=== PATIENT | female | born 1960 | race Caucasian/White ===

== ENCOUNTER 2023-04-01 15:11 | Outpatient (CLI) | payer BC, SELFPAY ==
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
== END 2023-04-01 15:12 ==
PROVIDERS: PCP Internal Medicine; Visit Provider Nurse Practitioner
DX: M25.561 Pain in right knee (principal); M25.461 Effusion, right knee
CPT/HCPCS: 73564

== ENCOUNTER 2023-08-03 14:26 | Outpatient (CLI) | payer BC, SELFPAY ==
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
== END 2023-08-03 14:27 ==
LOC: MICIMG 14:27
PROVIDERS: PCP Clinical Nurse Specialist; Visit Provider Clinical Nurse Specialist
DX: M71.21 Synovial cyst of popliteal space [Baker], right knee (principal); G89.29 Other chronic pain; M25.561 Pain in right knee
CPT/HCPCS: 73721

== ENCOUNTER 2023-11-03 14:50 | Outpatient (CLI) | payer BC, SELFPAY ==
--- NOTE | ~2023-11-03 | MM_ITS ---
EXAMINATION: MM screening eric BI w dilshad HISTORY: Screening TECHNIQUE: Craniocaudal and mediolateral oblique 3-D tomosynthesis images were obtained and synthetic 2-D images were generated. CAD analysis was submitted and interpreted. COMPARISON: 09/30/2017 BREAST PARENCHYMAL COMPOSITION: Not dense: There are scattered areas of fibroglandular density. FINDINGS: There is no evidence of suspicious mass, calcification, or architectural distortion to sugg est malignancy in either breast. There has been no suspicious interval change. IMPRESSION: 1. No mammographic evidence of malignancy. 2. Recommend routine screening mammography in one year. BI-RADS Category 1: Negative Reviewed, dictated and finalized at location A. SHOE WORKER
== END 2023-11-03 14:51 | disposition home or self-care (01) ==
PROVIDERS: PCP Clinical Nurse Specialist; Visit Provider Nurse Practitioner
DX: Z12.31 Encounter for screening mammogram for malignant neoplasm of breast (principal)
CPT/HCPCS: 77063; 77067

== ENCOUNTER 2024-03-07 06:44 | Outpatient (CLI) | payer SELFPAY ==
[2024-03-07 07:14] LABS: Basophils Percent Auto 0.7 % (0.2-1.2); Eosinophils Absolute Auto 0.2 K/mm3 (0-0.3); Eosinophils Percent Auto 2.9 % (0-4.4); Hematocrit 41.7 % (37.0-47.0); Hemoglobin 14.1 g/dL (12.0-15.0); Immature Granulocyte Absolute 0.02 K/mm3 (0.00-0.031); Immature Granulocyte Percent A 0.4 % (0-0.5); Lymphocytes Absolute Auto 2.87 K/mm3 (0.9-3.2); Lymphocytes Percent Auto 51.2 % (18.3-44.2); Mean Corpuscular HGB Conc 33.8 g/dl (32-36); Mean Corpuscular Hemoglobin 31.5 pg (26-34); Mean Corpuscular Volume 93.1 fl (80-100); Mean Platelet Volume 9.4 fl (7.4-10.4); Monocytes Absolute Auto 0.5 K/mm3 (0.1-0.6); Monocytes Percent Auto 9.6 % (2.6-8.5); Neutrophils Percent Auto 35.2 % (45.5-73.1); Platelet Count Result 217 k/mm3 (150-375); Red Blood Count 4.48 M/mm3 (4.2-5.4); White Blood Count 5.6 K/mm3 (4.5-10.0)
[2024-03-07 07:27] LABS: Alanine Aminotransferase 18 U/L (6-35); Albumin Level 4.3 g/dL (3.5-5.1); Alkaline Phosphatase 87 U/L (38-126); Anion Gap 5 mmol/L (4-12); Aspartate Amino Transferase 19 U/L (14-36); Bilirubin,Total 0.6 mg/dL (0.2-1.3); Blood Urea Nitrogen 13 mg/dL (7-17); Carbon Dioxide 28 mmol/L (22-30); Chloride 107 mmol/L (98-107); Estimated Glomerular Filt Rate > 60; Glucose 96 mg/dL (65-110); Potassium 3.9 mmol/L (3.4-5.0); Sodium 140 mmol/L (137-145)
[2024-03-07 17:17] LABS: Cholesterol 256 mg/dL (0-200); LDL Cholesterol Direct 73 mg/dL
[2024-03-07 17:31] LABS: Triglycerides 747 mg/dL (<150)
== END 2024-03-07 06:45 | disposition home or self-care (01) ==
LOC: ANHLAB 06:48
PROVIDERS: PCP Internal Medicine; Visit Provider Clinical Nurse Specialist
DX: E55.9 Vitamin D deficiency, unspecified (principal); E53.8 Deficiency of other specified B group vitamins; E78.1 Pure hyperglyceridemia; R53.83 Other fatigue; Z13.29 Encounter for screening for other suspected endocrine disorder
CPT/HCPCS: 36415; 80053; 80061; 82607; 84443; 85025

== ENCOUNTER 2024-04-19 06:36 | Outpatient (CLI) | payer OTHER, SELFPAY ==
[2024-04-19 07:11] LABS: Cholesterol 201 mg/dL (0-200); HDL Direct 39 mg/dL; Triglycerides 400 mg/dL (<150)
[2024-04-19 07:22] LABS: LDL Cholesterol Direct 51 mg/dL
== END 2024-04-19 06:37 | disposition home or self-care (01) ==
LOC: ANHLAB 06:37
PROVIDERS: PCP Internal Medicine; Visit Provider Clinical Nurse Specialist
DX: E55.9 Vitamin D deficiency, unspecified (principal); E53.8 Deficiency of other specified B group vitamins; E78.1 Pure hyperglyceridemia; R53.83 Other fatigue; Z13.29 Encounter for screening for other suspected endocrine disorder
CPT/HCPCS: 36415; 80061; 82306; 82607

== ENCOUNTER 2024-07-28 14:12 | Outpatient (CLI) | payer OTHER, SELFPAY ==
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
== END 2024-07-28 14:13 | disposition home or self-care (01) ==
LOC: ANHIMG 14:15
PROVIDERS: PCP Internal Medicine; Visit Provider Psychiatry & Neurology Neurology
DX: Z87.828 Personal history of other (healed) physical injury and trauma (principal)
CPT/HCPCS: 70551

== ENCOUNTER 2024-10-24 07:02 | Outpatient (CLI) | payer OTHER, SELFPAY ==
--- OUTSIDE RECORDS SUMMARY | 2024-10-24 07:05 | XMS_ITS | Clinical Summary ---
Author Organization [facility] Address [address] [place] [address] Phone Care Team Providers Care Medical Technician Assistant Name Role Phone Spenser Tinajero MD Primary Care Provider [phone] Encounters Date Type Department Care Team Description 10/04/2024 External Device Data [facility] ABSTRACTION Provider, Abstract 09/27/2024 External Device Data [facility] ABSTRACTION Provider, Abstract 09/20/2024 External Device Data [facility] ABSTRACTION Provider, Abstract from Last 3 Months Social History Tobacco Use Types Packs/Day Years Used Date Smoking Tobacco: Never Assessed Comments Unknown Sex and Gender Information Value Date Recorded Sex Assigned at Not on file Legal Sex Female 6:11 AM 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 Gender Identity Not on file Sexual Orientation Not on file Plan of Treatment Health Maintenance Due Date Last Done Comments DTAP/TDAP/TD VACCINES (1 - Tdap) 02/12/1980 CERVICAL CANCER SCREENING 1991 BREAST CANCER SCREENING 2001 COLORECTAL SCREENING 2006 Colorectal Cancer Screening 2006 FIT-DNA Q 3 years 2006 FIT/FOBT Q 1 year 2006 Flex Sig/CT Colonography Q 5 years 2006 ZOSTER VACCINE (1 of 2) 2011 INFLUENZA VACCINE (#1) 2024 RSV VACCINE (60+ or ) (1 - 1-dose 75+ series) 02/12/2036 PNEUMOCOCCAL VACCINE 0-64 YEARS Aged Out No longer eligible based on patient's age to complete this topic Insurance [employer] BLUE ACCESS CHOICE Care Teams Medical Technician Assistant Relationship Specialty Start Date End Date Spenser Tinajero MD [address] [place] [address] PCP - General Internal Medicine 07/08/12
--- OUTSIDE RECORDS SUMMARY | 2024-10-24 07:05 | XMS_ITS | Clinical Summary ---
Author Organization [facility] Address [address] [place] [address] Care Team Providers Care Returning Officer Name Role Phone Zoe Daigle RN Unavailable [phone] Unknown, Notinfile Primary Care Provider Unavail able Allergies No known active allergies Medications acetaminophen (TYLENOL) 500 mg tablet Take 1 tablet (500 mg total) by mouth every 4 (four) hours as needed for pain Active ibuprofen 200 mg tab/cap Take 1 tablet/capsu le (200 mg total) by mouth every 4 (four) hours as needed for pain Active gabapentin (NEURONTIN) 100 mg capsule Take 1 capsule (100 mg total) by mouth nightly 07/15/2023 Active Active Problems No known active problems Surgical History Surgery Date Site/Laterality Comments CHOLECYSTECTOMY PARTIAL HYSTERECTOMY HYSTERECTOMY Medical History Medical History Date Comments Migraines Social History Tobacco Use Types Packs/Day Years Used Date Smoking Tobacco: Never Smokeless Tobacco: Never Alcohol Use Standard Drinks/Week Comments Yes 0 (1 standard drink = 0.6 oz pur e alcohol) seldom Personal Safety Answer Date Recorded Have you ever been in or are you currently in a harmful physical or emotional relationship or is someone making you feel afraid or unsafe? Denies 08/27/2023 Comments Unknown Sex and Gender Information Value Date Recorded Sex Assigned at Not on file Legal Sex Female 10:48 AM CDT Gender Identity Not on file Sexual Orientation Not on file Obstetrics History Last Filed Vital Signs Vital Sign Reading Time Taken Comments Blood Pressure 134/87 08/28/2023 12:30 AM KNOWLEDGE MANAGER Pulse 67 08/27/2023 11:50 PM KNOWLEDGE MANAGER Temperature 36.2 C (97.1 F) 08/27/2023 11:32 PM KNOWLEDGE MANAGER Respiratory Rate 18 08/27/2023 11:45 PM KNOWLEDGE MANAGER Oxygen Saturation 95% 08/27/2023 11:50 PM KNOWLEDGE MANAGER Inhaled Oxygen Concentration - - Weight 77.1 kg (170 lb) 09/18/2023 1:22 PM KNOWLEDGE MANAGER Height 157.5 cm (5' 2 ) 09/18/2023 1:22 PM KNOWLEDGE MANAGER Body Mass Index 31.09 09/18/2023 1:22 PM KNOWLEDGE MANAGER Plan of Treatment Health Maintenance Due Date Last Done Comments Breast Cancer Screening-Mammogram 1961 Colon Cancer Screening-Colonoscopy 1961 Depression Screening 1961 Hepatitis C Screening 1961 DTaP/Tdap/Td Vaccine (1 - Tdap) 02/12/1972 Regular Well Visit/Exam 18-64 1979 Zoster Vaccine (1 of 2) 2011 Covid-19 Vaccine (3 - 2023-2 5 season) 2024 02/21/2021, 01/23/2021 Influenza Vaccine (#1) 2024 Pneumococcal vaccine <65 Aged Out No longer eligible based on patient's age to complete this topic Insurance [employer] CHOICE [facility] ACCESS CHOICE ANTHEM ACCESS CHOICE MRA WORKERS COMPENSATION GENERIC WORKERS COMPENSATION GENERIC WORKERS COMPENSATION GENERIC Care Teams Returning Officer Relationship Specialty Start Date End Date Unknown, Notinfile PCP - General 09/02/23 Zoe Daigle, RN [address] [address] Emr Implementation Specialist 02/09/18
--- OUTSIDE RECORDS SUMMARY | 2024-10-24 07:05 | XMS_ITS | Referral Summary ---
Author Organization [facility] Address [address] [place] [address] Care Team Providers Care Head Bookkeeper Name Role Phone Zoe Daigle RN Unavailable [phone] Unknown, Notinfile Primary Care Provider Unavail able [...] Active Active Problems No known active problems Social History Tobacco Use Types Packs/Day Years [...] on file Sexual Orientation Not on file Last Filed Vital Signs Vital Sign Reading Time Taken Comments Blood Pressure 134/87 08/28/2023 12:30 AM DERMATOLOGIST AND DERMATOPATHOLOGIST Pulse 67 08/27/2023 11:50 PM DERMATOLOGIST AND DERMATOPATHOLOGIST Temperature 36.2 C (97.1 F) 08/27/2023 11:32 PM DERMATOLOGIST AND DERMATOPATHOLOGIST Respiratory Rate 18 08/27/2023 11:45 PM DERMATOLOGIST AND DERMATOPATHOLOGIST Oxygen Saturation 95% 08/27/2023 11:50 PM DERMATOLOGIST AND DERMATOPATHOLOGIST Inhaled Oxygen Concentration - - Weight 77.1 kg (170 lb) 09/18/2023 1:22 PM DERMATOLOGIST AND DERMATOPATHOLOGIST Height 157.5 cm (5' 2 ) 09/18/2023 1:22 PM DERMATOLOGIST AND DERMATOPATHOLOGIST Body Mass Index 31.09 09/18/2023 1:22 PM DERMATOLOGIST AND DERMATOPATHOLOGIST Plan of Treatment Not on file Insurance ANTHEM ACCESS CHOICE ANTHEM ACCESS CHOICE ANTHEM ACCESS CHOICE MRA WORKERS COMPENSATION GENERIC WORKERS COMPENSATION GENERIC WORKERS COMPENSATION GENERIC Care Teams Head Bookkeeper Relationship Specialty Start Date End Date Unknown, Notinfile PCP - General 09/02/23 Zoe Daigle, RN [address] [facility] [address] [place] [address] Cans Vacuum Tester 02/09/18
--- OUTSIDE RECORDS SUMMARY | 2024-10-24 07:05 | XMS_ITS | CONTINUITY OF CARE DOCUMENT ---
Author Name shaun coraldonnie Address Unknown Organization [facility] Address [address] [place] [address] [address] [place] [address] Phone [phone] Care Team Providers Care Antique Furniture Restorer Name Role Phone Yudith SALES, Ang Unavailable QUOC NICHOLAS DO Unavailable [phone] QUOC NICHOLAS DO Unavailable [phone] PROBLEMS Condition Status Date Provider Notes Cardiovascular screening active Ang mckinney MD Hypertriglyceridemia active Ang Cisneros Edema active Ang Zurita MD CHEST PAIN, ATYPICAL active Ang Cisneros Hyperlipidemia active ? Ang Zurita MD ENCOUNTERS Date Type Provider Location Encounter Diag nosis - In-person encounter Office Visit Ang Zurita MD [facility] - In-person encounter Office Visit Logan Hartman MD [facility] - In-person encounter Office Visit Ang Zurita MD [facility] Cardiovascular screeningHypertriglyceridemiaEdemaCHEST PAIN, ATYPICALHyperlipidemia VITAL SIGNS Date Observation Value Provider Body Mass Index (Ratio) 33.47 kg/m2 Kee Zurita MD blood pressure, cuff size regular Ke rrarnie Metz blood pressure, diastolic 80 mm[Hg] Ke rri Lashay blood pressure, systolic 120 mm[Hg] Anselmo Metz oxygen saturation, oximetry 98 % Sandra Metz respiratory rate E&M 18 /min Sandra stoddardjoanarhonda pulse rate 83 /min Sandra Moon er weight E&M 183 [lb_av] Sandra Moon er height E&M 62 [in_i] Sandra Moon er Body Mass Index (Ratio) 33.83 kg/m2 Susy Ely LEAD ENTERPRISE ARCHITECT oxygen saturation, oximetry 95 % Chastity Olu respiratory rate E&M 16 /min Chastit y Olu pulse rate 85 /min Chastity Olu blood pressure, diastolic 80 mm[Hg] Ch astity Olu blood pressure, systolic 130 mm[Hg] Riya stity Olu weight E&M 185 [lb_av] [facility] E&M 62 [in_i] Chastity Olu Body Mass Index (Ratio) 33.28 kg/m2 Kee Zurita MD blood pressure, diastolic 80 mm[Hg] Abraham isjosé miguel Willard blood pressure, systolic 120 mm[Hg] Abrahamarnie misty Willard pulse rate 83 /min Destiny Stinsonby oxygen saturation, oximetry 94 % Destiny Willard respiratory rate E&M 16 /min Destiny Carmel blood pressure, resting No Huseyineusebio Willard weight E&M 182 [lb_av] Destiny Stinsonby height E&M 62 [in_i] Destiny Stinsonby blood pressure, cuff size regular Kr isjosé miguel Stinsonby ALLERGIES No Known Drug Allergies HISTORY OF MEDICATION USE Medication Status Instructions Dates Provider Indications Com ments FENOFIBRATE 160 MG ORAL TABLET active ONE TAB DAILY Ang Zurita MD SOCIAL HISTORY Date Observation Value Provider social history E&M Marital Statu s: C 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 Ang Zurita MD social history reviewed E&M revi ewed - no changes required Ang Zurita MD alcohol use, average drinks per day social Sandra Metz alcohol use yes Sandra Moon lder passive cigarette sm salma exposure no Sandra Rowesherie smoking status Never smoker Sandra Valdez keturah alcohol use, average drinks per day social Chastity Olu alcohol use yes Chastity Olu passive cigarette sm salma exposure no Chastity Olu smoking status Never smoker Chastity Hogu e alcohol use, average drinks per day social Ang Zurita MD alcohol use yes Ang Cisneros passive cigarette sm salma exposure no Ang Zurita MD social history reviewed E&M revi ewed - no changes required Ang Zurita MD social history E&M Marital Statu s: C 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 Ang Zurita MD smoking status Never smoker Detsiny Stinsonby FAMILY HISTORY Family Member Condition First Degree Blood Relative No Known Fam yenni History INSURANCE PROVIDERS Payer name Policy type / Coverage type [facility] green party ID [id number] insuranc e [employer] [id number] ADVANCE DIRECTIVES Name Date POWER OF FAMILY PROTECTION SPECIALIST LIVING WILL ON FILE TREATMENT PLAN Date Name Performer Cardiology Follow up :Start feno fibrate Ang Zurita MD Cardiology Follow up Ang mckinney MD Cardiology Follow up Ang mckinney MD Cardiology:check BATOOL e ncouraged PASQUALE wraps/compression stockings k eep legs elevated Hitesh Ely NP Cardiology:normal st ress echo i mproved Hitesh Ely LEAD ENTERPRISE ARCHITECT Cardiology Ang Zurita MD Cardiology Ang Zurita MD Cardiology Ang Zurita MD Date Name TSH, 3RD GENERATION T-4, FREE COMPREHENSIVE METABO LIC PANEL, W/EGFR IRON AND TOTAL IRON BINDING CAPACITY FERRITIN CBC (INCLUDES DIFF/P LT) LIPID PANEL Arterial Duplex Bi-L ower EX Venous Doppler Bilat eral LE - Reflux Venous Doppler Bilat eral LE STR - Nuclear Complete Echo Sleep Study Home HISTORY OF PROCEDURES Procedure Date Procedure Name Provider Procedure Notes S tatus Stress EKG Ang Zurita MD complete d Cardiolite, 2 units Jacqueline Alvarez MD completed SPECT Images Jacqueline Alvarez MD compl eted [employer] Ang Zurita MD complete d EKG Ang Zurita MD complete d
--- OUTSIDE RECORDS SUMMARY | 2024-10-24 07:06 | XMS_ITS | Encounter Summary ---
Author Organization [facility] Address [address] [facility] [place] [address] Care Team Providers Care Cloth Feeder Name Role Phone Remington Oliver DO Primary Care Provider [phone] Reason for Visit * Reason Onset Date Comments MEDICATION REFILL 04/02/2024 Encounter Details Date Type Department Care Team (Late st Contact Info) Description 04/02/2024 Refill [facility] - Neurology [address] [place] [address], [place] [address] Simon Bradley, CLINICAL TRAINING SPECIALIST-AUTOTRANSFUSIONIST [address] [place] [address] [place] [address] MEDICATION REFILL Social History Tobacco Use Types Packs/Day Years Used Date Smoking Tobacco: Never Smokeless Tobacco: Never Alcohol Use Standard Drinks/Week Comments Yes 0 (1 standard drink = 0.6 oz pur e alcohol) socially AUDIT-C Answer Date Recorded Q1: How often do you have a drink containing alc ohol? Never 08/27/2022 Q2: How many drinks containi ng alcohol do you have on a typical day when you are drinking? 1 or 2 08/27/2022 Q3: How often do you have si x or more drinks on one occasion? Less than monthly 08/27/2022 Hunger Vital Sign Answer Date Recorded Within the past 12 months, y ou worried that your food would run out before you got the money to buy more. Never true 08/28/20 22 Within the past 12 months, t he food you bought just didn't last and you didn't have money to get more. Never true 08/28/2022 Sex and Gender Information Value Date Recorded Sex Assigned at Not on file Gender Identity Not on file Sexual Orientation Not on file documented as of this encounter Functional Status Functional Status Response Date of Assess ment Is person deaf or have serious hearing difficult y? No 08/27/2022 Is person blind or have serious difficulty seein g? No 08/27/2022 Does person have serious dif ficulty walking/climbing stairs? No 08/27/2022 Does person have difficulty dressing/bathing? No 08/27/2022 Does person have difficulty doing errands alone? No 08/27/2022 Cognitive Status Response Date of Assessm ent Does person have difficulty concentrating/remembering/making decisions? No 08/27/2022 documented as of this encounter Plan of Treatment Not on file documented as of this encounter Visit Diagnoses Diagnosis Migraine without aura and without status migrainosus, not intractable Migraine without aura, without mention of intractable migraine without mention of status migrainosus Post-concussion headache Post-traumatic headache, unspecified documented in this encounter Care Teams Cloth Feeder Relationship Specialty Start Date End Date Remington Oliver DO PCP - General 04/12/19 documented as of this encounter
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
--- OUTSIDE RECORDS SUMMARY | 2024-10-24 07:06 | XMS_ITS | Patient Health Summary ---
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 [facility] is an aid to medical diagnosis and treatment of patients. No documented chain of custody was maintained. Results are intended to be used for clinical purposes only. Remington Tomas MD LAB - URINE CHEMISTR Y ORDERABLES [facility] [address] [place] [address], [facility] [phone] * XR KNEE RIGHT 3VW (08/27/2022 3:44 PM TEST ENGINEERING TECHNICIAN) Anatomical Region Laterality Modality Lower Extremity Radiographic Porsche ging 08/27/2022 3:50 PM TEST ENGINEERING TECHNICIAN Impressions 08/28/2022 11:17 AM TEST ENGINEERING TECHNICIAN IMPRESSION: No acute fracture or dislocation. Soft tissue contusion/hematoma formation of the anterior medial lower leg. Report dictated by Prince Brady M.D. (resident care manager rn) I, PONCHO CAVANAUGH MD have personally reviewed and interpreted this examination/study. > Interpreting Provider: PONCHO CAVANAUGH MD on 08/28/2022 11:17 AM Narrative 08/28/2022 11:17 AM TEST ENGINEERING TECHNICIAN PROCEDURE: XR KNEE RIGHT 3VW, DATE/TIME OF EXAM: 08/27/2022 3:45 PM, LOCATION [facility] INDICATION: T14.90XA: Trauma ADDITIONAL CLINICAL INFORMATION: Ordering Provider Reason For Exam: trauma COMPARISON: None. TECHNIQUE: Frontal and lateral radiographs of the right knee. FINDINGS: There is no fracture or osseous abnormality. The joint alignment is normal. No joint effusion is noted. Increased density in the soft tissues anterior and medial to the tibia may represent hematoma. Procedure Note Poncho Caavnaugh MD - 08/28/2022 PROCEDURE: XR KNEE RIGHT 3VW, DATE/TIME OF EXAM: 08/27/2022 3:45 PM, LOCATION [facility] INDICATION: T14.90XA: Trauma ADDITIONAL CLINICAL INFORMATION: Ordering Provider Reason For Exam: trauma COMPARISON: None. TECHNIQUE: Frontal and lateral radiographs of the right knee. FINDINGS: There is no fracture or osseous abnormality. The joint alignment is normal. No joint effusion is noted. Increased density in the soft tissues anterior and medial to the tibiamay represent hematoma. IMPRESSION: No acute fracture or dislocation. Soft tissue contusion/hematoma formation of the anterior medial lowerleg. Report dictated by Prince Brady M.D. (resident care manager rn) I, PONCHO CAVANAUGH MD have personally reviewed and interpreted this examination/study. > Interpreting Provider: PONCHO CAVANAUGH MD on 08/28/2022 11:17 AM Remington Tomas MD DIAGNOSTIC IMAGING O RDERABLES * BLOOD TYPE VERIFICATION (08/27/2022 3:27 PM TEST ENGINEERING TECHNICIAN) ABO Rh O NEG 08/27/2022 4:1 4 PM TEST ENGINEERING TECHNICIAN [facility] LAB Blood Bank BLOOD SPECIMEN / Unknown Lab Venipuncture / Unknown 08/27/2022 3:27 PM TEST ENGINEERING TECHNICIAN 08/27/2022 4:09 PM TEST ENGINEERING TECHNICIAN Vianca Walsh MD LAB - BLOOD BANK ORD ERABLES [facility] [address] [place] [address] [phone] * SARS-COV-2 (COVID-19)+INFLU A+B PCR RAPID (08/27/2022 3:25 PM TEST ENGINEERING TECHNICIAN) COVID-19 PCR Not detected Not detected 08/27/20 4:09 PM TEST ENGINEERING TECHNICIAN [facility] Influenza A Rapid GINGER Not Detected Not Detected 08/27/2022 4:09 PM TEST ENGINEERING TECHNICIAN [facility] Influenza B GINGER Rapid Not Detected Not Detected 08/27/2022 4:09 PM TEST ENGINEERING TECHNICIAN [facility] Microbiology SPECIMEN FROM NASOPHARYNGEAL STRUCTURE / Unknown Collection / Unknown 08/27/2022 3:25 PM TEST ENGINEERING TECHNICIAN 08/27/2022 3:28 PM TEST ENGINEERING TECHNICIAN [facility] - 08/27/2022 4:09 PM TEST ENGINEERING TECHNICIAN Influenza assay performed by [employer]. Results do not exclude the possibility of a mixed viral infection. NOTE: Detecting and identifying specific viral nucleic acids from individuals exhibiting signs and symptoms of respiratory infection aids in the diagnosis of respiratory infection, if used in conjunction with other clinical and laboratory findings. The results of this test should not be used as the sole basis for diagnosis, treatment, or patient management decisions. This nucleic acid amplification assay performance was validated by [facility]. This test has been authorized by the Food and Drug administration (FDA)under an Emergency Use Authorization (EUA). This test has been validated in accordance with the FDA's guidance document Policy for Diagnostic Testing in Laboratories Certified to perform High Complexity Testing under CLIA prior to Emergency Use Authorization for Coronavirus Disease-2019 during the Public Health Emergency issued on November 12, 2019. FDA independent review of this validation is pending. This test is only authorized for the duration of time the declaration that circumstances exist justifying the authorization of emergency use of in vitro diagnostic tests for detection of SARS-CoV-2 virus and/or diagnosis of COVID-19 infection under section 564(b)(1) of the Act, 21 U.S.C 360bbb-3 (b)(1), unless the authorization is terminated or revoked sooner. Fact Sheets for this EUA assay are available upon request. Renan Garcia MD LAB - MICROBIOLOGY ORDERABLES [facility] [address] [place] [address], [facility] [phone] * CT CHEST ABDOMEN PELVIS W CONT - Abdomen-pelvis trauma, blunt or penetrating (08/27/2022 3:21 PM TEST ENGINEERING TECHNICIAN) Anatomical Region Laterality Modality Chest, Abdomen, Pelvis Computed Tomography 08/27/2022 3:23 PM TEST ENGINEERING TECHNICIAN Impressions 08/27/2022 4:20 PM TEST ENGINEERING TECHNICIAN IMPRESSION: 1.Compression deformity of the L2 superior endplate, which is superimposed on a Schmorl's node. This is indeterminate and may represent sequela of degenerative change. Recommend correlation with point tenderness. Attention to dedicated CT lumbar spine report. 2.Minimally displaced fracture of the left anterolateral seventh rib. 3.Otherwise, no acute visceral, vascular, or osseous process in the chest, abdomen, or pelvis. 4.Incidental note of hemangiomas within hepatic segment 6. I, PONCHO CAVANAUGH MD have personally reviewed and interpreted this examination/study. > Interpreting Provider: PONCHO CAVANAUGH MD on 08/27/2022 4:20 PM Narrative 08/27/2022 4:20 PM TEST ENGINEERING TECHNICIAN EXAMINATION: Computed tomography (CT) of the chest, abdomen, and pelvis with contrast HISTORY: Trauma TECHNIQUE: CT of the chest, abdomen, and pelvis was performed following the uneventful administration of Omnipaque 350 intravenous contrast according to standard protocol. COMPARISON: None FINDINGS: Chest: A left sided aorta is present. The aorta and main pulmonary artery are normal in course and caliber. No central filling defect is identified on this non-PE protocol study to suggest central pulmonary embolus. No substantial aortic atherosclerosis is noted. No axillary, supraclavicular, mediastinal, or hilar lymphadenopathy is identified. The thyroid enhances homogeneously. The heart is normal in size. No pericardial effusion is seen. No substantial coronary artery atherosclerosis is noted. Dependent atelectasis is seen bilaterally. No confluent consolidations are noted. No pleural effusion is seen. No pneumothorax is identified. The trachea is patent without endobronchial lesion. Pulmonary Nodules: *None Abdomen/Pelvis: Hemangiomas are identified in hepatic segment 6. A simple cyst is seen in hepatic segment 8. No surface nodularity is noted. The main portal vein is patent and non-dilated. The hepatic veins are patent. The gallbladder is normal. No intra or extra-hepatic biliary dilatation is present. The spleen is within normal limits. The pancreas is normal. The adrenal glands are normal bilaterally. Cortical cysts are seen in the kidneys. The kidneys otherwise enhance symmetrically. No hydronephrosis is present. No renal stones are identified. No hydroureter is present. No suspicious renal mass is noted. The distal esophagus and stomach are within normal limits. The small and large bowel are normal in course and caliber without evidence of wall thickening or obstruction. The appendix is normal. No ascites is present. No free intraperitoneal air is noted. No mesenteric or retroperitoneal lymphadenopathy is identified. The urinary bladder is distended with fluid and demonstrates no acute abnormality. The uterus is surgically absent. No adnexal mass is noted. No free pelvic fluid is noted. No pelvic or inguinal lymphadenopathy is noted. The abdominal aorta is normal in course and caliber. No evidence of acute aortic injury is noted. The soft tissues are within normal limits. No lytic or blastic lesions are identified. Compression deformity of the L2 superior endplate superimposed Schmorl's node is identified. A minimally displaced fracture of the left anterolateral seventh rib is present. Procedure Note Poncho Cavanaugh MD - 08/27/2022 EXAMINATION: Computed tomography (CT) of the chest, abdomen, and pelvis with contrast HISTORY: Trauma TECHNIQUE: CT of the chest, abdomen, and pelvis was performed followingthe uneventful administration of Omnipaque 350 intravenous contrastaccording to standard protocol. COMPARISON: None FINDINGS: Chest: A left sided aorta is present. The aorta and main pulmonary artery are normal in course and caliber. No central filling defect is identified on this non-PE protocol study to suggest central pulmonary embolus. No substantial aortic atherosclerosis is noted. No axillary, supraclavicular, mediastinal, or hilar lymphadenopathy is identified. The thyroid enhances homogeneously. The heart is normal in size. No pericardial effusion is seen. No substantial coronary artery atherosclerosis is noted. Dependent atelectasis is seen bilaterally. No confluent consolidationsare noted. No pleural effusion is seen. No pneumothorax is identified. The trachea is patent without endobronchial lesion. Pulmonary Nodules: *None Abdomen/Pelvis: Hemangiomas are identified in hepatic segment 6. A simple cyst is seenin hepatic segment 8. No surface nodularity is noted. The main portal veinis patent and non-dilated. The hepatic veins are patent. The gallbladder is normal. No intra or extra-hepatic biliary dilatation is present. The spleen is within normal limits. The pancreas is normal. The adrenal glands are normal bilaterally. Cortical cysts are seen in the kidneys. The kidneys otherwise enhance symmetrically. No hydronephrosis is present. No renal stones are identified. No hydroureter is present. No suspicious renal mass isnoted. The distal esophagus and stomach are within normal limits. The small and large bowel are normal in course and caliber without evidence of wall thickening or obstruction. The appendix is normal. No ascites ispresent. No free intraperitoneal air is noted. No mesenteric or retroperitoneal lymphadenopathy is identified. The urinary bladder is distended with fluid and demonstrates no acute abnormality. The uterus is surgically absent. No adnexal mass is noted.No free pelvic fluid is noted. No pelvic or inguinal lymphadenopathy isnoted. The abdominal aorta is normal in course and caliber. No evidence ofacute aortic injury is noted. The soft tissues are within normal limits. No lytic or blastic lesions are identified. Compression deformity of theL2 superior endplate superimposed Schmorl's node is identified. A minimally displaced fracture of the left anterolateral seventh rib is present. IMPRESSION: 1.Compression deformity of the L2 superior endplate, which issuperimposed on a Schmorl's node. This is indeterminate and may represent sequela of degenerative change. Recommend correlation with point tenderness.Attention to dedicated CT lumbar spine report. 2.Minimally displaced fracture of the left anterolateral seventh rib. 3.Otherwise, no acute visceral, vascular, or osseous process in thechest, abdomen, or pelvis. 4.Incidental note of hemangiomas within hepatic segment 6. I, PONCHO CAVANAUGH MD have personally reviewed and interpreted this examination/study. > Interpreting Provider: PONCHO CAVANAUGH MD on 08/27/2022 4:20 PM [address] Tomas MD CT ORDERABLES * CT LUMBAR SPINE WO CONTRAST - T/L-spine trauma, Spine fracture (08/27/2022 3:21 PM TEST ENGINEERING TECHNICIAN) Anatomical Region Laterality Modality Spine Computed Tomogra phy 08/27/2022 3:34 PM TEST ENGINEERING TECHNICIAN Impressions 08/27/2022 4:34 PM TEST ENGINEERING TECHNICIAN IMPRESSION: 1.No evidence of acute fracture in the cervical, thoracic, or lumbar spine. I, Benton Villalobos MD have personally reviewed and interpreted this examination/study. > Interpreting Provider: Benton Villalobos MD on 08/27/2022 4:34 PM Narrative 08/27/2022 4:34 PM TEST ENGINEERING TECHNICIAN PROCEDURE: CT CERVICAL SPINE WO CONTRAST, CT THORACIC SPINE WO CONTRAST, CT LUMBAR SPINE WO CONTRAST, DATE/TIME OF EXAM: 08/27/2022 3:23 PM, LOCATION [facility] INDICATION: Trauma EXAMINATION: 1.CT of the cervical spine without contrast 2.CT of the thoracic spine without contrast 3.CT of the lumbar spine without contrast ADDITIONAL CLINICAL INFORMATION: Ordering Provider Reason For Exam: Trauma. Technologist Note: None. Additional: None. TECHNIQUE: CT of the cervical spine was performed without contrast according to standard protocol. Reformatted axial, sagittal, and coronal images of the thoracic and lumbar spine were obtained by the technologist from a concurrently performed body CT and sent to the workstation for review. CT dose reduction technique was used, including Automated Exposure Control. COMPARISON: None. FINDINGS: Cervical spine: Relative straightening of the cervical lordosis. The alignment is otherwise maintained. Vertebral bodies are normal in height without evidence of acute fracture. The craniocervical junction is normal. There is mild degenerative disc disease. No central canal stenosis is seen. There are varying degrees of mild facet osteoarthritis. The uncovertebral joints appear normal. No neural foraminal stenosis is seen. Mild opacities in the upper lobes atelectasis. Thoracic spine: Mild dextrocurvature of the thoracic spine. The alignment is otherwise maintained. Vertebral bodies are normal in height without evidence of acute fracture. Schmorl's nodes are present at multiple levels. No central canal stenosis is seen. There is mild facet osteoarthritis at multiple levels. No neural foraminal stenosis is seen. There is subsegmental atelectasis in the dependent portions of the lung bases. Lumbar spine: Mild levocurvature of the lumbar spine. Alignment is otherwise maintained. Vertebral bodies are normal in height without evidence of acute fracture. A Schmorl's node noted at the superior aspect of the vertebral body of L2. Vacuum gas phenomenon between L4-L5. Calcification of the nucleus pulposus of the L5-S1 intervertebral disc. Hyperattenuating nodular focus noted within the L3 vertebral body. There is mild degenerative disc disease. Mild central canal stenosis is seen at L4-L5 due to diffuse disc bulge, hypertrophy of the ligamentum flavum, bilateral facet hypertrophic osteoarthritis and mildly increased with superior fragment. There is mild facet osteoarthritis at multiple levels. Mild neural foraminal stenosis is seen at for this is identified and L5-S1. Small cysts are seen in the left kidney. Postcholecystectomy clips are noted in the candelario hepatis. Small left adrenal nodule is noted. Procedure Note Benton Villalobos MD - 08/27/2022 PROCEDURE: CT CERVICAL SPINE WO CONTRAST, CT THORACIC SPINE WOCONTRAST, CT LUMBAR SPINE WO CONTRAST, DATE/TIME OF EXAM: 08/27/2022 3:23 PM, LOCATION [facility] INDICATION: Trauma EXAMINATION: 1.CT of the cervical spine without contrast 2.CT of the thoracic spine without contrast 3.CT of the lumbar spine without contrast ADDITIONAL CLINICAL INFORMATION: Ordering Provider Reason For Exam: Trauma. Technologist Note: None. Additional: None. TECHNIQUE: CT of the cervical spine was performed without contrast according to standard protocol. Reformatted axial, sagittal, and coronal images of the thoracic and lumbar spine were obtained by thetechnologist from a concurrently performed body CT and sent to the workstation for review. CT dose reduction technique was used, including AutomatedExposure Control. COMPARISON: None. FINDINGS: Cervical spine: Relative straightening of the cervical lordosis. The alignment isotherwise maintained. Vertebral bodies are normal in height without evidence ofacute fracture. The craniocervical junction is normal. There is milddegenerative disc disease. No central canal stenosis is seen. There are varyingdegrees of mild facet osteoarthritis. The uncovertebral joints appear normal. No neural foraminal stenosis is seen. Mild opacities in the upper lobes atelectasis. Thoracic spine: Mild dextrocurvature of the thoracic spine. The alignment is otherwise maintained. Vertebral bodies are normal in height without evidence ofacute fracture. Schmorl's nodes are present at multiple levels. No centralcanal stenosis is seen. There is mild facet osteoarthritis at multiple levels.No neural foraminal stenosis is seen. There is subsegmental atelectasis inthe dependent portions of the lung bases. Lumbar spine: Mild levocurvature of the lumbar spine. Alignment is otherwisemaintained. Vertebral bodies are normal in height without evidence of acute fracture.A Schmorl's node noted at the superior aspect of the vertebral body of L2. Vacuum gas phenomenon between L4-L5. Calcification of the nucleuspulposus of the L5-S1 intervertebral disc. Hyperattenuating nodular focus noted within the L3 vertebral body. There is mild degenerative disc disease.Mild central canal stenosis is seen at L4-L5 due to diffuse disc bulge, hypertrophy of the ligamentum flavum, bilateral facet hypertrophic osteoarthritis and mildly increased with superior fragment. There ismild facet osteoarthritis at multiple levels. Mild neural foraminal stenosisis seen at for this is identified and L5-S1. Small cysts are seen in theleft kidney. Postcholecystectomy clips are noted in the candelario hepatis. Small left adrenal nodule is noted. IMPRESSION: 1.No evidence of acute fracture in the cervical, thoracic, or lumbarspine. Benton Hunter MD have personally reviewed and interpretedthis examination/study. > Interpreting Provider: Benton Villalobos MD on 08/27/2022 4:34 PM Remington Tomas MD CT ORDERABLES * CT THORACIC SPINE WO CONTRAST - T/L-spine trauma, spine fracture (08/27/2022 3:21 PM TEST ENGINEERING TECHNICIAN) Anatomical Region Laterality Modality Spine Computed Tomogra phy 08/27/2022 3:34 PM TEST ENGINEERING TECHNICIAN Impressions 08/27/2022 4:34 PM TEST ENGINEERING TECHNICIAN IMPRESSION: 1.No evidence of acute fracture in the cervical, thoracic, or lumbar spine. Benton Hunter MD have personally reviewed and interpreted this examination/study. > Interpreting Provider: Benton Villalobos MD on 08/27/2022 4:34 PM Narrative 08/27/2022 4:34 PM TEST ENGINEERING TECHNICIAN PROCEDURE: CT CERVICAL SPINE WO CONTRAST, CT THORACIC SPINE WO CONTRAST, CT LUMBAR SPINE WO CONTRAST, DATE/TIME OF EXAM: 08/27/2022 3:23 PM, LOCATION [facility] INDICATION: Trauma EXAMINATION: 1.CT of the cervical spine without contrast 2.CT of the thoracic spine without contrast 3.CT of the lumbar spine without contrast ADDITIONAL CLINICAL INFORMATION: Ordering Provider Reason For Exam: Trauma. Technologist Note: None. Additional: None. TECHNIQUE: CT of the cervical spine was performed without contrast according to standard protocol. Reformatted axial, sagittal, and coronal images of the thoracic and lumbar spine were obtained by the technologist from a concurrently performed body CT and sent to the workstation for review. CT dose reduction technique was used, including Automated Exposure Control. COMPARISON: None. FINDINGS: Cervical spine: Relative straightening of the cervical lordosis. The alignment is otherwise maintained. Vertebral bodies are normal in height without evidence of acute fracture. The craniocervical junction is normal. There is mild degenerative disc disease. No central canal stenosis is seen. There are varying degrees of mild facet osteoarthritis. The uncovertebral joints appear normal. No neural foraminal stenosis is seen. Mild opacities in the upper lobes atelectasis. Thoracic spine: Mild dextrocurvature of the thoracic spine. The alignment is otherwise maintained. Vertebral bodies are normal in height without evidence of acute fracture. Schmorl's nodes are present at multiple levels. No central canal stenosis is seen. There is mild facet osteoarthritis at multiple levels. No neural foraminal stenosis is seen. There is subsegmental atelectasis in the dependent portions of the lung bases. Lumbar spine: Mild levocurvature of the lumbar spine. Alignment is otherwise maintained. Vertebral bodies are normal in height without evidence of acute fracture. A Schmorl's node noted at the superior aspect of the vertebral body of L2. Vacuum gas phenomenon between L4-L5. Calcification of the nucleus pulposus of the L5-S1 intervertebral disc. Hyperattenuating nodular focus noted within the L3 vertebral body. There is mild degenerative disc disease. Mild central canal stenosis is seen at L4-L5 due to diffuse disc bulge, hypertrophy of the ligamentum flavum, bilateral facet hypertrophic osteoarthritis and mildly increased with superior fragment. There is mild facet osteoarthritis at multiple levels. Mild neural foraminal stenosis is seen at for this is identified and L5-S1. Small cysts are seen in the left kidney. Postcholecystectomy clips are noted in the candelario hepatis. Small left adrenal nodule is noted. Procedure Note Benton Villalobos MD - 08/27/2022 PROCEDURE: CT CERVICAL SPINE WO CONTRAST, CT THORACIC SPINE WOCONTRAST, CT LUMBAR SPINE WO CONTRAST, DATE/TIME OF EXAM: 08/27/2022 3:23 PM, LOCATION [facility] INDICATION: Trauma EXAMINATION: 1.CT of the cervical spine without contrast 2.CT of the thoracic spine without contrast 3.CT of the lumbar spine without contrast ADDITIONAL CLINICAL INFORMATION: Ordering Provider Reason For Exam: Trauma. Technologist Note: None. Additional: None. TECHNIQUE: CT of the cervical spine was performed without contrast according to standard protocol. Reformatted axial, sagittal, and coronal images of the thoracic and lumbar spine were obtained by thetechnologist from a concurrently performed body CT and sent to the workstation for review. CT dose reduction technique was used, including AutomatedExposure Control. COMPARISON: None. FINDINGS: Cervical spine: Relative straightening of the cervical lordosis. The alignment isotherwise maintained. Vertebral bodies are normal in height without evidence ofacute fracture. The craniocervical junction is normal. There is milddegenerative disc disease. No central canal stenosis is seen. There are varyingdegrees of mild facet osteoarthritis. The uncovertebral joints appear normal. No neural foraminal stenosis is seen. Mild opacities in the upper lobes atelectasis. Thoracic spine: Mild dextrocurvature of the thoracic spine. The alignment is otherwise maintained. Vertebral bodies are normal in height without evidence ofacute fracture. Schmorl's nodes are present at multiple levels. No centralcanal stenosis is seen. There is mild facet osteoarthritis at multiple levels.No neural foraminal stenosis is seen. There is subsegmental atelectasis inthe dependent portions of the lung bases. Lumbar spine: Mild levocurvature of the lumbar spine. Alignment is otherwisemaintained. Vertebral bodies are normal in height without evidence of acute fracture.A Schmorl's node noted at the superior aspect of the vertebral body of L2. Vacuum gas phenomenon between L4-L5. Calcification of the nucleuspulposus of the L5-S1 intervertebral disc. Hyperattenuating nodular focus noted within the L3 vertebral body. There is mild degenerative disc disease.Mild central canal stenosis is seen at L4-L5 due to diffuse disc bulge, hypertrophy of the ligamentum flavum, bilateral facet hypertrophic osteoarthritis and mildly increased with superior fragment. There ismild facet osteoarthritis at multiple levels. Mild neural foraminal stenosisis seen at for this is identified and L5-S1. Small cysts are seen in theleft kidney. Postcholecystectomy clips are noted in the candelario hepatis. Small left adrenal nodule is noted. IMPRESSION: 1.No evidence of acute fracture in the cervical, thoracic, or lumbarspine. Benton Hunter MD have personally reviewed and interpretedthis examination/study. > Interpreting Provider: Benton Villalobos MD on 08/27/2022 4:34 PM Remington Tomas MD CT ORDERABLES * CT CERVICAL SPINE WO CONTRAST - C-Spine Trauma, Spine fracture (08/27/2022 3:21 PM TEST ENGINEERING TECHNICIAN) Anatomical Region Laterality Modality Spine Computed Tomogra phy 08/27/2022 3:34 PM TEST ENGINEERING TECHNICIAN Impressions 08/27/2022 4:34 PM TEST ENGINEERING TECHNICIAN IMPRESSION: 1.No evidence of acute fracture in the cervical, thoracic, or lumbar spine. Benton Hunter MD have personally reviewed and interpreted this examination/study. > Interpreting Provider: Benton Villalobos MD on 08/27/2022 4:34 PM Narrative 08/27/2022 4:34 PM TEST ENGINEERING TECHNICIAN PROCEDURE: CT CERVICAL SPINE WO CONTRAST, CT THORACIC SPINE WO CONTRAST, CT LUMBAR SPINE WO CONTRAST, DATE/TIME OF EXAM: 08/27/2022 3:23 PM, LOCATION [facility] INDICATION: Trauma EXAMINATION: 1.CT of the cervical spine without contrast 2.CT of the thoracic spine without contrast 3.CT of the lumbar spine without contrast ADDITIONAL CLINICAL INFORMATION: Ordering Provider Reason For Exam: Trauma. Technologist Note: None. Additional: None. TECHNIQUE: CT of the cervical spine was performed without contrast according to standard protocol. Reformatted axial, sagittal, and coronal images of the thoracic and lumbar spine were obtained by the technologist from a concurrently performed body CT and sent to the workstation for review. CT dose reduction technique was used, including Automated Exposure Control. COMPARISON: None. FINDINGS: Cervical spine: Relative straightening of the cervical lordosis. The alignment is otherwise maintained. Vertebral bodies are normal in height without evidence of acute fracture. The craniocervical junction is normal. There is mild degenerative disc disease. No central canal stenosis is seen. There are varying degrees of mild facet osteoarthritis. The uncovertebral joints appear normal. No neural foraminal stenosis is seen. Mild opacities in the upper lobes atelectasis. Thoracic spine: Mild dextrocurvature of the thoracic spine. The alignment is otherwise maintained. Vertebral bodies are normal in height without evidence of acute fracture. Schmorl's nodes are present at multiple levels. No central canal stenosis is seen. There is mild facet osteoarthritis at multiple levels. No neural foraminal stenosis is seen. There is subsegmental atelectasis in the dependent portions of the lung bases. Lumbar spine: Mild levocurvature of the lumbar spine. Alignment is otherwise maintained. Vertebral bodies are normal in height without evidence of acute fracture. A Schmorl's node noted at the superior aspect of the vertebral body of L2. Vacuum gas phenomenon between L4-L5. Calcification of the nucleus pulposus of the L5-S1 intervertebral disc. Hyperattenuating nodular focus noted within the L3 vertebral body. There is mild degenerative disc disease. Mild central canal stenosis is seen at L4-L5 due to diffuse disc bulge, hypertrophy of the ligamentum flavum, bilateral facet hypertrophic osteoarthritis and mildly increased with superior fragment. There is mild facet osteoarthritis at multiple levels. Mild neural foraminal stenosis is seen at for this is identified and L5-S1. Small cysts are seen in the left kidney. Postcholecystectomy clips are noted in the candelario hepatis. Small left adrenal nodule is noted. Procedure Note Benton Villalobos MD - 08/27/2022 PROCEDURE: CT CERVICAL SPINE WO CONTRAST, CT THORACIC SPINE WOCONTRAST, CT LUMBAR SPINE WO CONTRAST, DATE/TIME OF EXAM: 08/27/2022 3:23 PM, LOCATION [facility] INDICATION: Trauma EXAMINATION: 1.CT of the cervical spine without contrast 2.CT of the thoracic spine without contrast 3.CT of the lumbar spine without contrast ADDITIONAL CLINICAL INFORMATION: Ordering Provider Reason For Exam: Trauma. Technologist Note: None. Additional: None. TECHNIQUE: CT of the cervical spine was performed without contrast according to standard protocol. Reformatted axial, sagittal, and coronal images of the thoracic and lumbar spine were obtained by thetechnologist from a concurrently performed body CT and sent to the workstation for review. CT dose reduction technique was used, including AutomatedExposure Control. COMPARISON: None. FINDINGS: Cervical spine: Relative straightening of the cervical lordosis. The alignment isotherwise maintained. Vertebral bodies are normal in height without evidence ofacute fracture. The craniocervical junction is normal. There is milddegenerative disc disease. No central canal stenosis is seen. There are varyingdegrees of mild facet osteoarthritis. The uncovertebral joints appear normal. No neural foraminal stenosis is seen. Mild opacities in the upper lobes atelectasis. Thoracic spine: Mild dextrocurvature of the thoracic spine. The alignment is otherwise maintained. Vertebral bodies are normal in height without evidence ofacute fracture. Schmorl's nodes are present at multiple levels. No centralcanal stenosis is seen. There is mild facet osteoarthritis at multiple levels.No neural foraminal stenosis is seen. There is subsegmental atelectasis inthe dependent portions of the lung bases. Lumbar spine: Mild levocurvature of the lumbar spine. Alignment is otherwisemaintained. Vertebral bodies are normal in height without evidence of acute fracture.A Schmorl's node noted at the superior aspect of the vertebral body of L2. Vacuum gas phenomenon between L4-L5. Calcification of the nucleuspulposus of the L5-S1 intervertebral disc. Hyperattenuating nodular focus noted within the L3 vertebral body. There is mild degenerative disc disease.Mild central canal stenosis is seen at L4-L5 due to diffuse disc bulge, hypertrophy of the ligamentum flavum, bilateral facet hypertrophic osteoarthritis and mildly increased with superior fragment. There ismild facet osteoarthritis at multiple levels. Mild neural foraminal stenosisis seen at for this is identified and L5-S1. Small cysts are seen in theleft kidney. Postcholecystectomy clips are noted in the candelario hepatis. Small left adrenal nodule is noted. IMPRESSION: 1.No evidence of acute fracture in the cervical, thoracic, or lumbarspine. I, Benton Villalobos MD have personally reviewed and interpretedthis examination/study. > Interpreting Provider: Benton Villalobos MD on 08/27/2022 4:34 PM Remington Tomas MD CT ORDERABLES * TEG 6 GLOBAL HEMOSTASIS W/ LYSIS (08/27/2022 2:56 PM TEST ENGINEERING TECHNICIAN) [facility] Citrated Kaolin R (Reaction Time) 5.2 4.6 - 9.1 min 08/27/2022 4:15 PM [facility] Citrated Kaolin LY30 (Lysis) 0.0 0.0 - 2.6 % 08/27/2022 4:15 PM [facility] Citrated Functional Fibrinogen MA (Max Amplitude) 22.5 15.0 - 32.0 mm 08/27/2022 4:15 PM [facility] Citrated RapidTEG MA (Max Amplitude) 64.9 52.0 - 70.0 mm 08/27/2022 4:15 PM [facility] Blood BLOOD SPECIMEN / Unknown Venipuncture / Unknown 08/27/2022 2:56 PM TEST ENGINEERING TECHNICIAN 08/27/2022 3:08 PM TEST ENGINEERING TECHNICIAN Remington Tomas MD LAB - HEMATOLOGY ORD ERABLES Performing Organization Address City/State/[facility] Co de Phone Number [address] [address], [facility] [phone] * TEG 6S PLATELET MAPPING (08/27/2022 2:56 PM TEST ENGINEERING TECHNICIAN) [facility] TEGPLM (Max Amplitude) Koalin 64.3 53.0 - 68.0 mm 08/27/2022 3:57 PM [facility] TEGPLM (Max Amplitude) ACTF 14.1 2.0 - 19.0 mm 08/27/2022 3:57 PM [facility] TEGPLM (Max Amplitude) ADP 59.2 45.0 - 69.0 mm 08/27/2022 3:57 PM [facility] TEGPLM (Max Amplitude) AA 63.8 51.0 - 71.0 mm 08/27/2022 3:57 PM [facility] TEGPLM %Inhibition ADP 10.2 0.0 - 17.0 % 08/27/2022 3:57 PM [facility] TEGPLM %Inhibition AA 1.0 0.0 - 11.0 % 08/27/2022 3:57 PM [facility] TEGPLM %Aggregation ADP 89.8 83.0 - 100.0 % 08/27/2022 3:57 PM [facility] TEGPLM % Aggregation AA 99.0 89.0 - 100.0 % 08/27/2022 3:57 PM [facility] Blood BLOOD SPECIMEN / Unknown Venipuncture / Unknown 08/27/2022 2:56 PM TEST ENGINEERING TECHNICIAN 08/27/2022 3:08 PM TEST ENGINEERING TECHNICIAN Remington Tomas MD LAB - HEMATOLOGY ORD ERABLES Performing Organization Address [facility]/ZIP Co de Phone Number [address] [address], [facility] [phone] * PTT [facility] (08/27/2022 2:56 PM TEST ENGINEERING TECHNICIAN) APTT 27.2 23.0 - 38.4 Seconds 08/27/2022 3:28 PM [facility] Comment:Suggested therapeuti c range for full dose I.V. unfractionated heparin therapy for venous thromboembolism is 71 to 109 seconds. Blood BLOOD SPECIMEN / Unknown Venipuncture / Unknown 08/27/2022 2:56 PM TEST ENGINEERING TECHNICIAN 08/27/2022 3:06 PM TEST ENGINEERING TECHNICIAN Remington Tomas MD LAB - COAGULATION OR DERABLES Performing Organization Address [facility] Co de Phone Number [address] [address], [facility] [phone] * PT-INR [facility] (08/27/2022 2:56 PM TEST ENGINEERING TECHNICIAN) PT 12.6 12.1 - 14.8 Seconds 08/27/2022 3:27 PM [facility] INR 0.9 See Comment 08/27/2022 3:27 PM [facility] Comment:The suggested therap eutic range for standard coumadin (warfarin) therapy is an INR of 2.0-3.0. For high-risk patients (Mechanical Mitral Valve Prosthesis, etc.), the suggested prophylactic therapeutic range is an INR of 2.5-3.5. Blood BLOOD SPECIMEN / Unknown Venipuncture / Unknown 08/27/2022 2:56 PM TEST ENGINEERING TECHNICIAN 08/27/2022 3:06 PM TEST ENGINEERING TECHNICIAN Remington Tomas MD LAB - COAGULATION OR DERABLES Performing Organization Address City/[facility]/ZIP Co de Phone Number [address] [address], [place] [phone] * TYPE + SCREEN PANEL (08/27/2022 2:56 PM TEST ENGINEERING TECHNICIAN) [facility] Antibody Screen NEG 3:47 PM TEST ENGINEERING TECHNICIAN [facility] BLOOD BANK LAB ABO Rh O NEG 08/27/2022 3:47 PM TEST ENGINEERING TECHNICIAN [facility] BLOOD BANK LAB Blood Bank BLOOD SPECIMEN / Unknown Venipuncture / Unknown 08/27/2022 2:56 PM TEST ENGINEERING TECHNICIAN 08/27/2022 3:06 PM TEST ENGINEERING TECHNICIAN Remington Tomas MD LAB - BLOOD BANK ORD ERABLES Performing Organization Address City/[facility]/ZIP Co de Phone Number [facility] BLOOD BANK LAB [address] [place] [phone], [place] [phone] * (ABNORMAL) DIFFERENTIAL MANUAL (08/27/2022 2:56 PM TEST ENGINEERING TECHNICIAN) [facility] WBC (corrected for NRBC) 10.7 10 3/uL 08/27/2022 4:31 PM [facility] Total Cell Count 100 08/27/2022 4:31 PM [facility] Neutrophils Absolute Manual 6.63 1.60 - 7.00 10 3/uL 08/27/2022 4:31 PM [facility] Comment:(BANDS+SEGS) x WBC = NEUT # (ANC) Lymphocyte Absolute Manual 3.10 1.10 - 3.90 10 3/uL 08/27/2022 4:31 PM [facility] Monocytes Absolute Manual 0.64 0.26 - 1.07 10 3/uL 08/27/2022 4:31 PM [facility] Eosinophils Absolute Manual 0.21 0.00 - 0.47 10 3/uL 08/27/2022 4:31 PM [facility] Basophil Absolute Manual 0.11(H) 0.00 - 0.08 10 3/uL 08/27/2022 4:31 PM [facility] Neutrophil % Manual 62 35 - 70 % 08/27/2022 4:31 PM [facility] Lymphocyte % Manual 29 20 - 43 % 08/27/2022 4:31 PM [facility] Monocytes % Manual 6 5 - 13 % 08/27/2022 4:31 PM [facility] Eosinophils % Manual 2 0 - 6 % 08/27/2022 4:31 PM [facility] Basophils % Manual 1 0 - 2 % 08/27/2022 4:31 PM [facility] Platelet Morphology Normal 08/27/2022 4:31 PM [facility] Smudge Cells Occasional (A) None 08/27/2022 4:31 PM [facility] Blood BLOOD SPECIMEN / Unknown Venipuncture / Unknown 08/27/2022 2:56 PM TEST ENGINEERING TECHNICIAN 08/27/2022 3:06 PM TEST ENGINEERING TECHNICIAN Remington Tomas MD LAB - HEMATOLOGY ORD JOSE Performing Organization Address City/[facility]/ZIP Co de Phone Number [address] [address], [facility] [phone] * HCG BETA BLOOD QUANTITATIVE (08/27/2022 2:56 PM TEST ENGINEERING TECHNICIAN) Pathologist [facility] Beta-hCG Total Quantitative 4 mIU/mL 08/27/2022 3:58 PM [facility] Comment: This assay is cleared for use in the early detection of only. It is not approved for any other uses such as tumor marker screening, tumor marker monitoring, etc. and should not be used for any other purposes. HCG Numeric Result Interpretation: Non- Females: < 5 mIU/mL Post-Menopausal Females: < 7 mIU/mL Blood BLOOD SPECIMEN / Unknown Venipuncture / Unknown 08/27/2022 2:56 PM TEST ENGINEERING TECHNICIAN 08/27/2022 3:06 PM TEST ENGINEERING TECHNICIAN Remington Tomas MD LAB - CHEMISTRY ORDToyin RICHEY [address] [address], [facility] [phone] * ALCOHOL ETHYL BLOOD (08/27/2022 2:56 PM TEST ENGINEERING TECHNICIAN) Ethanol (mg/dL) <10 <10 mg/dL 3:38 PM TEST ENGINEERING TECHNICIAN [facility] Ethanol Calculated (g/dL) <0.010 <=0.010 g/dL 08/27/2022 3:38 PM TEST ENGINEERING TECHNICIAN [facility] Blood BLOOD SPECIMEN / Unknown Venipuncture / Unknown 08/27/2022 2:56 PM TEST ENGINEERING TECHNICIAN 08/27/2022 3:06 PM TEST ENGINEERING TECHNICIAN Narrative [facility] - 08/27/2022 3:38 PM TEST ENGINEERING TECHNICIAN Ethanol Interp <10: None Detected. Depression of SAP BASIS ARCHITECT: >100 mg/dl Potentially Critical: >250 mg/dl Potentially Fatal >400 mg/dl Ethanol in the patient's blood will contribute to the osmolar gap. Ethanol's contribution to the osmolar gap can be estimated by dividing the concentration of ethanol in mg/dL by 4.6. This test is for clinical use only and does not equal a MAGDALENO for legal purposes. Remington Tomas MD LAB - CHEMISTRY YASMIN [facility] Organization Address City/State/ZIP Co de Phone Number [facility] [address] [place] [address], [facility] [phone] * XR CHEST 1VW PORTABLE (08/27/2022 2:55 PM TEST ENGINEERING TECHNICIAN) Anatomical Region Laterality Modality Chest Radiographic Porsche ging 08/27/2022 3:00 PM TEST ENGINEERING TECHNICIAN Narrative 08/28/2022 12:06 AM TEST ENGINEERING TECHNICIAN PROCEDURE: XR CHEST 1VW PORTABLE, DATE/TIME OF EXAM: 08/27/2022 2:50 PM, LOCATION [facility] INDICATION: Trauma COMPARISON: None. FINDINGS/IMPRESSION: Patchy left retrocardiac opacities may represent retrocardiac atelectasis or airspace disease. There is no pleural effusion or pneumothorax. The cardiomediastinal silhouette is normal. There is a minimally displaced fracture of the left lateral T7 rib. Report dictated by Joey Velazquez MD (resident care manager rn). Isma Hunter MD have personally reviewed and interpreted this examination/study. > Interpreting Provider: Isma Pardo MD on 08/28/2022 12:06 AM Procedure Note Isma Pardo MD - 08/28/2022 PROCEDURE: XR CHEST 1VW PORTABLE, DATE/TIME OF EXAM: 08/27/2022 2:50PM, LOCATION [facility] INDICATION: Trauma COMPARISON: None. FINDINGS/IMPRESSION: Patchy left retrocardiac opacities may represent retrocardiacatelectasis or airspace disease. There is no pleural effusion or pneumothorax. The cardiomediastinal silhouette is normal. There is a minimally displaced fracture of the left lateral T7 rib. Report dictated by Joey Velazquez MD (resident care manager rn). Isma Hunter MD have personally reviewed and interpreted this examination/study. > Interpreting Provider: Isma Pardo MD on 08/28/2022 12:06 AM Remington Tomas MD DIAGNOSTIC IMAGING O RDERABLES * XR PELVIS 1 OR 2VW (08/27/2022 2:55 PM TEST ENGINEERING TECHNICIAN) Anatomical Region Laterality Modality Pelvis Radiographic Porsche ging 08/27/2022 3:06 PM TEST ENGINEERING TECHNICIAN Impressions 08/28/2022 12:05 AM TEST ENGINEERING TECHNICIAN IMPRESSION: No fracture or dislocation. Report dictated by Prince Brady M.D. (resident care manager rn) Isma Hunter MD have personally reviewed and interpreted this examination/study. > Interpreting Provider: Isma Pardo MD on 08/28/2022 12:05 AM Narrative 08/28/2022 12:05 AM TEST ENGINEERING TECHNICIAN PROCEDURE: XR PELVIS 1 OR 2VW, DATE/TIME OF EXAM: 08/27/2022 2:50 PM, LOCATION [facility] INDICATION: Trauma Fracture suspected COMPARISON: None. TECHNIQUE: AP view of the pelvis. FINDINGS: There is no fracture. 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 No hip subluxation or dislocation is seen. The sacroiliac joints are normal. No soft tissue abnormality is seen. Procedure Note Isma Pardo MD - 08/28/2022 PROCEDURE: XR PELVIS 1 OR 2VW, DATE/TIME OF EXAM: 08/27/2022 2:50 PM, LOCATION [facility] INDICATION: Trauma Fracture suspected COMPARISON: None. TECHNIQUE: AP view of the pelvis. FINDINGS: There is no fracture. 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 No hip subluxation or dislocation is seen. The sacroiliac joints are normal. No soft tissue abnormality is seen. IMPRESSION: No fracture or dislocation. Report dictated by Prince Brady M.D. (resident care manager rn) I, Isma Pardo MD have personally reviewed and interpreted this examination/study. > Interpreting Provider: Isma Pardo MD on 08/28/2022 12:05 AM Remington Tomas MD DIAGNOSTIC IMAGING O RDERABLES * XR TIBIA FIBULA LEFT 2VW (04/26/2019 12:46 PM CDT) Anatomical Region Laterality Modality Lower Extremity Radiographic Porsche ging 04/26/2019 12:5 0 PM CDT Impressions 04/26/2019 12:51 PM CDT Soft tissue swelling Reading Radiologist: Nikole Canseco MD on 04/26/2019 at 12:51 PM Narrative 04/26/2019 12:51 PM CDT Left tib-fib, 2 views weightbearing DATE: 04/26/2019 INDICATION: Leg swelling FINDINGS: There is no fracture, dislocation or significant degenerative change. Soft tissues are swollen in the distal calf Procedure Note Nikole Canseco MD - 04/26/2019 Left tib-fib, 2 views weightbearing DATE: 04/26/2019 INDICATION: Leg swelling FINDINGS: There is no fracture, dislocation or significant degenerative change. Soft tissues are swollen in the distal calf IMPRESSION Soft tissue swelling Reading Radiologist: Nikole Canseco MD on 04/26/2019 at 12:51 PM Brandi John PA-C DIAGNOSTIC IMAG ING ORDERABLES * XR SHOULDER LEFT 2VW OR MORE (04/12/2019 1:49 PM CDT) Anatomical Region Laterality Modality Upper Extremity Radiographic Porsche ging 04/12/2019 1:54 PM CDT Impressions 04/12/2019 1:55 PM CDT Unremarkable. Reading Radiologist: Nikole Canseco MD on 04/12/2019 at 1:55 PM Narrative 04/12/2019 1:55 PM CDT Left shoulder, 3 views DATE: 04/12/2019 INDICATION: Shoulder pain FINDINGS: There is no fracture, dislocation or significant degenerative change. The AC joint is normally aligned. Procedure Note Nikole Canseco MD - 04/12/2019 Left shoulder, 3 views DATE: 04/12/2019 INDICATION: Shoulder pain FINDINGS: There is no fracture, dislocation or significant degenerative change. The AC joint is normally aligned. IMPRESSION Unremarkable. Reading Radiologist: Nikole Canseco MD on 04/12/2019 at 1:55 PM Ramona Skelton PA-C DIAGNOSTIC IMAGING O [facility] Care Teams Car Dumper Operator Relationship Specialty Start Date End Date Remington Oliver DO PCP - General 04/12/19
--- OUTSIDE RECORDS SUMMARY | 2024-10-24 07:06 | XMS_ITS | Referral Summary ---
Author Organization [facility] Address [address] [place] [address] Care Team Providers Care Hydroelectric Station Operator Name Role Phone Remington Oliver DO Primary Care Provider [phone] Source Comments [facility],non-owned Affiliates and Associated Physician Practices is amultiple site organization consisting of ambulatory clinics and hospital sitesin [place], [place], [place] and [place]. This disclosure is being madepursuant to the Care Everywhere program and may not contain all information available regarding this patient. Last updated 18.[facility] Allergies No known active allergies Medications * [...] CDT Respiratory Rate 18 11/06/2022 9:52 AM PLASTIC DIE MAKER APPRENTICE Oxygen Saturation 97% 07/15/2023 12:41 PM CDT Inhaled Oxygen Concentration - - Weight 84.1 kg (185 lb 8 oz) 01/06/2024 3:35 PM CDT Height 157.5 cm (5' 2 ) 01/06/2024 3:35 PM CDT Body Mass Index 33.93 01/06/2024 3:35 PM CDT Functional Status Functional Status Response Date of [...] person have difficulty concentrating/remembering/making decisions? No 08/27/2022 Plan of Treatment Not on file Procedures Procedure Name Priority Date/Time Associated Diagnosis Comments BASIC METABOLIC PANEL (CALCIUM TOTAL) Timed 08/29/2022 3:05 AM PLASTIC DIE MAKER APPRENTICE from Last 3 Months or Most Recently Relevant to Health Maintenance Results * (ABNORMAL) BASIC METABOLIC PANEL (CALCIUM TOTAL) (08/29/2022 3:05 AM PLASTIC DIE MAKER APPRENTICE) BUN 9 7 - 26 mg/dL 08/29/2022 3:36 AM [facility] Creatinine 0.46(L) 0.56 - 0.96 mg/dL [...] Unknown Venipuncture / Unknown 08/29/2022 3:05 AM PLASTIC DIE MAKER APPRENTICE 08/29/2022 3:09 AM PLASTIC DIE MAKER APPRENTICE Gigi Trevino PA-C LAB - CHEMISTRY O RDERABLES [facility] [address] [place] [address], [facility] [phone] from Last 3 Months or Most Recently Relevant to Health Maintenance Advance Directives * Full Code (Latest Code Status on File) Date Activated Date Inactivated Comments 08/27/2022 5:32 PM 08/29/2022 6:17 PM Care Teams Hydroelectric Station Operator Relationship Specialty Start Date End Date Remington Oliver DO PCP - General 04/12/19
[2024-10-24 07:56] LABS: Basophils Absolute Auto 0.1 K/mm3 (0.0-0.1); Basophils Percent Auto 0.7 % (0.2-1.2); Eosinophils Absolute Auto 0.2 K/mm3 (0-0.3); Eosinophils Percent Auto 2.5 % (0-4.4); Hematocrit 42.4 % (37.0-47.0); Hemoglobin 14.2 g/dL (12.0-15.0); Immature Granulocyte Absolute 0.02 K/mm3 (0.00-0.031); Immature Granulocyte Percent A 0.3 % (0-0.5); Lymphocytes Absolute Auto 2.75 K/mm3 (0.9-3.2); Lymphocytes Percent Auto 40.8 % (18.3-44.2); Mean Corpuscular HGB Conc 33.5 g/dl (32-36); Mean Corpuscular Hemoglobin 31.6 pg (26-34); Mean Corpuscular Volume 94.2 fl (80-100); Mean Platelet Volume 9.7 fl (7.4-10.4); Monocytes Absolute Auto 0.6 K/mm3 (0.1-0.6); Monocytes Percent Auto 8.6 % (2.6-8.5); Neutrophils Absolute Auto 3.2 K/mm3 (1.3-6.7); Neutrophils Percent Auto 47.1 % (45.5-73.1); Platelet Count Result 220 k/mm3 (150-375); Red Cell Distribution Width 12.1 % (11.5-14.5); White Blood Count 6.7 K/mm3 (4.5-10.0)
[2024-10-24 08:57] LABS: Alanine Aminotransferase 17 U/L (6-35); Albumin Level 4.2 g/dL (3.5-5.1); Alkaline Phosphatase 96 U/L (38-126); Anion Gap 11 mmol/L (4-12); Aspartate Amino Transferase 19 U/L (14-36); Bilirubin,Total 0.8 mg/dL (0.2-1.3); Blood Urea Nitrogen 14 mg/dL (7-17); Calcium 9.2 mg/dL (8.4-10.2); Carbon Dioxide 26 mmol/L (22-30); Chloride 103 mmol/L (98-107); Cholesterol 249 mg/dL (0-200); Estimated Glomerular Filt Rate > 60; Glucose 92 mg/dL (65-110); HDL Direct 39 mg/dL; Potassium 3.9 mmol/L (3.4-5.0); Sodium 140 mmol/L (137-145); Triglycerides 496 mg/dL (<150)
[2024-10-24 09:07] LABS: LDL Cholesterol Direct 68 mg/dL; Vitamin D 25 Hydroxy 19.6 ng/mL
== END 2024-10-24 07:03 | disposition home or self-care (01) ==
LOC: ANHLAB 07:04
PROVIDERS: PCP Internal Medicine; Visit Provider Clinical Nurse Specialist
DX: Z13.220 Encounter for screening for lipoid disorders (principal); Z13.29 Encounter for screening for other suspected endocrine disorder; E55.9 Vitamin D deficiency, unspecified; E78.1 Pure hyperglyceridemia
CPT/HCPCS: 36415; 80053; 80061; 82306; 85025

== ENCOUNTER 2025-06-02 07:29 | Outpatient (CLI) | payer OTHER, SELFPAY ==
--- OUTSIDE RECORDS SUMMARY | 2025-06-02 07:33 | XMS_ITS | Encounter Summary ---
Author Organization [facility] Address [address] [place] [address] Care Team Providers Care Billboard Poster Name Role Phone Remington Oliver DO Primary Care Provider [phone] Reason for Visit * Reason Onset Date Comments MEDICATION REFILL 04/02/2024 Encounter Details Date Type Department Care Team (Late st Contact Info) Description 04/02/2024 Refill [facility] - Neurology [address] [place] [address], [place] [address] Simon Bradley, AEROSPACE PHYSIOLOGICAL TECHNICIAN-BLOCK PILER [address] [place] [address] [place] [id number] MEDICATION REFILL Social History Tobacco Use Types [...] money to get more. Never true 08/28/2022 Comments Unknown Sex and Gender Information Value Date Recorded Sex Assigned at Not on file Legal Sex Female 1:29 PM CDT Gender Identity Not on file Sexual Orientation Not on file documented as of this encounter Functional Status * Is person deaf or have serious hearing difficulty? Answer Date of Assessment Author No 08/27/2022 6:49 PM Juan Jose Gates RN * Is person blind or have serious difficulty seeing? Answer Date of Assessment Author No 08/27/2022 6:49 PM Juan Jose Gates RN * Does person have serious difficulty walking/climbing stairs? Answer Date of Assessment Author No 08/27/2022 6:49 PM Juan Jose Gates RN * Does person have difficulty dressing/bathing? Answer Date of Assessment Author No 08/27/2022 6:49 PM Juan Jose Gates RN * Does person have difficulty doing errands alone? Answer Date of Assessment Author No 08/27/2022 6:49 PM Juan Jose Gates RN documented as of this encounter Mental Status * Does person have difficulty concentrating/remembering/making decisions? Answer Entry Date Author No 08/27/2022 6:49 PM Juan Jose Gates RN documented in this encounter Plan of Treatment Not on file documented as of this encounter Visit Diagnoses Diagnosis Migraine without aura and without status migrainosus, not intractable Migraine without aura, without mention of intractable migraine without mention of status migrainosus Post-concussion headache Post-traumatic headache, unspecified documented in this encounter Care Teams Billboard Poster Relationship Specialty Start Date End Date Remington Oliver DO PCP - General 04/12/19 documented as of this encounter
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
--- OUTSIDE RECORDS SUMMARY | 2025-06-02 07:33 | XMS_ITS | Clinical Summary ---
Author Organization [facility] Address [address] [place] [address] Care Team Providers Care Supervisor Firearms Name Role Phone Zoe Daigle RN Unavailable [phone] Unknown, Notinfile Primary Care Provider Unavail able [...] Comments Blood Pressure 134/87 08/28/2023 12:30 AM EDISCOVERY PROJECT MANAGER Pulse 67 08/27/2023 11:50 PM EDISCOVERY PROJECT MANAGER Temperature 36.2 C (97.1 F) 08/27/2023 11:32 PM EDISCOVERY PROJECT MANAGER Respiratory Rate 18 08/27/2023 11:45 PM EDISCOVERY PROJECT MANAGER Oxygen Saturation 95% 08/27/2023 11:50 PM EDISCOVERY PROJECT MANAGER Inhaled Oxygen Concentration - - Weight 77.1 kg (170 lb) 09/18/2023 1:22 PM EDISCOVERY PROJECT MANAGER Height 157.5 cm (5' 2) 09/18/2023 1:22 PM EDISCOVERY PROJECT MANAGER Body Mass Index 31.09 09/18/2023 1:22 PM EDISCOVERY PROJECT MANAGER Plan of Treatment Health Maintenance Due Date Last Done Comments Breast Cancer Screening-Mammogram 1961 Colon Cancer Screening-Colonoscopy 1961 Depression Screening 1961 Hepatitis C Screening 1961 DTaP/Tdap/Td Vaccine (1 - Tdap) 02/12/1972 Regular Well Visit/Exam 18-64 1979 Zoster Vaccine (1 of 2) 2011 Covid-19 Vaccine (3 - 2024-2 6 season) 2025 02/21/2021, 01/23/2021 Influenza Vaccine (#1) 2025 Hepatitis B Screening Completed 06/10/2010 Pneumococcal vaccine <65 Aged Out No longer eligible based on patient's age to complete this topic Insurance [employer] ANTHEM ACCESS CHOICE ANTHEM ACCESS CHOICE MRA WORKERS COMPENSATION GENERIC WORKERS COMPENSATION GENERIC WORKERS COMPENSATION GENERIC Care Teams Supervisor Firearms Relationship Specialty Start Date End Date Unknown, Notinfile PCP - General 09/02/23 Zoe Daigle, RN [address] [address] Tobacco Sieve Operator 02/09/18
--- OUTSIDE RECORDS SUMMARY | 2025-06-02 07:33 | XMS_ITS | Clinical Summary ---
Author Organization [facility] Address [address] [place] [address] Care Team Providers Care Real Time Analyst Name Role Phone Unavailable Primary Care Provider Unavailabl e Immunizations Immunization Administration Dates Next Due MODERNA COVID-19 (12+) MRNA, LNP-S, PF, 100 MCG/ 0.5 ML DOSE 02/21/2021,01/23/2021 Social History Tobacco Use Types Packs/Day Years Used Date Smoking Tobacco: Never Assessed Comments Unknown Sex and Gender Information Value Date Recorded Sex Assigned at Not on file Legal Sex Female 7:09 PM CDT Gender Identity Not on file Sexual Orientation Not on file Last Filed Vital Signs Vital Sign Reading Time Taken Comments Blood Pressure 133/94 08/13/2012 10:11 AM MAINTENANCE EQUIPMENT OPERATOR Pulse 83 08/13/2012 10:11 AM MAINTENANCE EQUIPMENT OPERATOR Temperature - - Respiratory Rate - - Oxygen Saturation - - Inhaled Oxygen Concentration - - Weight 76.7 kg (169 lb) 08/13/2012 10:11 AM MAINTENANCE EQUIPMENT OPERATOR Height 157.5 cm (5' 2) 08/13/2012 10:11 AM MAINTENANCE EQUIPMENT OPERATOR Body Mass Index 30.91 08/13/2012 10:11 AM MAINTENANCE EQUIPMENT OPERATOR Plan of Treatment Health Maintenance Due Date Last Done Comments Cervical Cancer Screening Pa p Smear (Age 30 to 64) Every 3 Years 1961 Colorectal Cancer Screening Colonoscopy (10 Years) 1961 Annual Physical 02/12/1964 Hepatitis C 1979 DTaP, Tdap and Td Vaccines ( 1 - Tdap) 02/12/1980 Cervical Cancer Screening Pa p with HPV Testing (Age 30 to 64) Every 5 Years 1991 Cervical Cancer Screening wi th HPV 1991 Mammogram Screening 2001 Pneumococcal Vaccine: 50+ Years (1 of 1 - PCV) 2011 Zoster Vaccines (1 of 2) 2011 COVID-19 Vaccine (3 - 2024-2 6 season) 2025 02/21/2021, 01/23/2021 RSV Immunization or 60+ Years (1 - 1-dose 75+ series) 02/12/2036 Meningococcal B Vaccine Aged Out No l onger eligible based on patient's age to complete this topic Meningococcal Vaccine Aged Out No mary yash eligible based on patient's age to complete this topic RSV Immunizations Under 20 Months Aged Out No longer eligible b ased on patient's age to complete this topic [place] [address] [place] [address]
--- OUTSIDE RECORDS SUMMARY | 2025-06-02 07:33 | XMS_ITS | Clinical Summary ---
Author Organization [facility] Address [address] [place] [address] Phone Care Team Providers Care Gimp Tacker Name Role Phone Spenser Tinajero MD Primary Care Provider [phone] Social History Tobacco Use Types Packs/Day Years Used Date Smoking Tobacco: Never Assessed Comments Unknown Sex and Gender Information Value Date Recorded Sex Assigned at Not on file Legal Sex Female 6:11 AM CARBIDE TOOL DIE MAKER Gender Identity Not on file Sexual Orientation Not on file Plan of Treatment Health Maintenance Due Date Last Done Comments DTAP/TDAP/TD VACCINES (1 - Tdap) 02/12/1980 HPV/Cotest (21-29) 1982 CERVICAL CANCER SCREENING 1991 HPV/Cotest (30-65) 1991 PAP SMEAR 1991 BREAST CANCER SCREENING 2001 COLORECTAL SCREENING 2006 Colorectal Cancer Screening 2006 FIT-DNA Q 3 years 2006 FIT/FOBT Q 1 year 2006 Flex Sig/CT Colonography Q 5 years 2006 ZOSTER VACCINE (1 of 2) 2011 INFLUENZA VACCINE (#1) 2025 RSV VACCINE (60+ or ) (1 - 1-dose 75+ series) 02/12/2036 Insurance [facility] BLUE ACCESS CHOICE Care Teams Gimp Tacker Relationship Specialty Start Date End Date Spenser Tinajero MD [address] [place] [id number] PCP - General Internal Medicine 07/08/12
[2025-06-02 08:08] LABS: Hematocrit 42.7 % (37.0-47.0); Hemoglobin 14.1 g/dL (12.0-15.0); Immature Granulocyte Percent A 0.4 % (0-0.5); Lymphocytes Absolute Auto 2.48 K/mm3 (0.9-3.2); Mean Corpuscular HGB Conc 33.0 g/dl (32-36); Mean Corpuscular Hemoglobin 31.1 pg (26-34); Mean Corpuscular Volume 94.3 fl (80-100); Nucleated Red Blood Cells Absolute Auto 0.000 K/mm3 (0.0-0.012); Nucleated Red Blood Cells Perc 0.0 % (0.0-0.2); Platelet Count Result 214 k/mm3 (150-375); Red Blood Count 4.53 M/mm3 (4.2-5.4); White Blood Count 5.4 K/mm3 (4.5-10.0)
[2025-06-02 08:59] LABS: Thyroid Stimulating Hormone 2.350 uIU/mL (0.465-4.680)
== END 2025-06-02 07:30 | disposition home or self-care (01) ==
LOC: ANHLAB 07:30
PROVIDERS: PCP Internal Medicine; Visit Provider Nurse Practitioner
DX: T14.8XXA Other injury of unspecified body region, initial encounter (principal); R53.83 Other fatigue; X58.XXXA Exposure to other specified factors, initial encounter
CPT/HCPCS: 36415; 84443; 85025